=== PATIENT | male | born 1985 | race Caucasian/White ===

== ENCOUNTER → 2019-04-20 | Outpatient (CLI) | payer OTHER ==
--- NOTE | 2019-04-20 17:21 | REP ---
MRI BILATERAL KNEES: TECHNIQUE: Axial proton density fat saturation, sagittal proton density T2 STIR, water excitation, coronal proton density, proton density fat saturation. RIGHT KNEE: There is no evidence of a meniscal tear. The cruciate and collateral ligaments are intact. The extensor mechanism is intact. There is mild chondromalacia of the patella. The medial and lateral patellar retinacula are intact. There is also mild diffuse chondromalacia of the femoral condyles and tibial plateaus. No osteochondral defect is seen. There is no bone marrow signal abnormality. There is no bone marrow edema. There is normal amount of joint fluid. A small amount of septated fluid is seen at the proximal tibiofibular articulation. No popliteal cyst is seen. IMPRESSION: Mild global chondromalacia. No evidence of internal derangement. LEFT KNEE: Menisci are intact. There is no evidence of a meniscal tear. The cruciate and collateral ligaments are intact. The extensor mechanism is intact. Medial and lateral patellar retinacula are intact. There is mild chondromalacia of the patella diffusely. There is mild scattered chondromalacia of the femoral condyles and tibial plateaus. No osteochondral defect is seen. There is no bone marrow signal abnormality, with no bone marrow edema or occult fracture. There is a normal amount of joint fluid. There appears to be a 6 mm cyst or lymph node in the popliteal fossa. IMPRESSION: No evidence of internal derangement. Mild global chondromalacia. Electronically Signed by Camacho Samuels MD 04/21/2019 09:26 A
== END ==
LOC: M RAD 15:08
PROVIDERS: ATTEND Family Medicine
DX: M22.41 Chondromalacia patellae, right knee (principal); M22.42 Chondromalacia patellae, left knee